=== PATIENT | male | born 1955 | race Caucasian/White ===

== ENCOUNTER 2019-11-28 07:53 | Outpatient (CLI) | payer OTHER, SELFPAY ==
--- NOTE | ~2019-11-28 | XR_ITS ---
EXAMINATION: XR lumbar spine 2-3V EXAM DATE: 11/28/2019 08:14 INDICATION: Low back pain. TECHNIQUE: Lumber spine frontal, lateral, lateral L5-S1 projections for interpretation. Comparison is made to prior examination from 06/12/2012. FINDINGS: There is 4 mm retrolisthesis L3 on L4. Mild diffuse lumbar disc disease, mild upper lumbar , moderate lower lumbar facet arthropathy. Sacrum, sacroiliac joints, sacral arcuate lines are intact . Paraspinal soft tissue is unremarkable. Mild lumbar dextroscoliosis. No endplate erosive change. IMPRESSION: Mild to moderate lumbar spondylosis. Reviewed, dictated and finalized at location B.
== END 2019-11-28 07:54 | disposition home or self-care (01) ==
LOC: ANHIMG 08:02
PROVIDERS: PCP Family Medicine; Visit Provider Family Medicine
DX: M47.896 Other spondylosis, lumbar region (principal)
CPT/HCPCS: 72100

== ENCOUNTER → 2021-01-27 12:05 | Outpatient (CLI) | payer OTHER, SELFPAY ==
--- NOTE | ~2021-01-27 | MR_ITS ---
EXAMINATION: MR brain/brain stem wo/w con EXAM DATE: 01/27/2021 13:12 INDICATION: Multiple sclerosis. TECHNIQUE: Magnetic resonance imaging (MRI) of the brain/brain stem obtained without contrast. Sagit maddie T1, axial diffusion, gradient echo (T2*), T1, T2, FLAIR sequences obtained. Patient was then inj ected with 20 cc intravenous Multihance contrast. Axial and coronal postcontrast T1 weighted sequence s obtained. There is no prior study for comparison. FINDINGS: There are approximately 8-10 white matter T2 hyperintensities, some involving corpus callos um, consistent with quiescent multiple sclerosis. No posterior fossa signal abnormalities. There are no areas of restricted diffusion to suggest acute infarction. There is no acute hemorrhage seen on t he T2*, a hemosiderin sensitive sequence. No intraparenchymal brain mass. The ventricles are normal in size. There are no extra-axial collections. Flow voids are seen in the cerebral arteries on the T2-weighted sequences consistent with their expected patency. The orbits are unremarkable. Soft tis adry is unremarkable. There are no areas of abnormal enhancement on the postcontrast images. IMPRESSION: Scattered white matter lesions consistent with quiescent multiple sclerosis. No evidence of active disease. Reviewed, dictated and finalized at location B. IMPRESSION: Scattered white matter lesions consistent with quiescent multiple s clerosis. No evidence of active disease.
[2021-01-27 12:39] LABS: Estimated Glomerular Filt Rate > 60
== END ==
DX: G35 Multiple sclerosis (principal)
CPT/HCPCS: 70553; A9577

== ENCOUNTER → 2021-01-28 12:26 | Outpatient (CLI) | payer OTHER, SELFPAY ==
--- NOTE | ~2021-01-28 | MR_ITS ---
EXAMINATION: MR cervical spine wo/w con DATE: 01/28/2021 13:21 INDICATION: Multiple sclerosis. TECHNIQUE: Magnetic resonance imaging (MRI) of the cervical spine was performed without and with 20 m L MultiHance intravenous contrast. Sequences included sagittal and axial T2-weighted FSE, sagittal T2 -weighted FS FSE, and sagittal and axial T1-weighted FSE. Postcontrast sequences included sagittal an d axial T1-weighted FS FSE. COMPARISON: None FINDINGS: There is 2 mm retrolisthesis of C5 on C6. There is mild chronic anterior wedging of C5 vert ebral body. There is severely decreased disc height at C5-C6. There is a lesion of increased T2-weigh carlos signal intensity in the spinal cord on the right at C2. There is a lesion of increased T2-weighte d signal intensity in the spinal cord on the right at C6. No abnormal contrast enhancement. The follo wing disc levels are specifically discussed: C2-C3: The disc does not extend beyond the endplate margin. There is mild bilateral uncovertebral celeste nt osteoarthritis. There is mild bilateral facet joint osteoarthritis. There is no neural foraminal s tenosis. There is no central canal stenosis. C3-C4: The disc does not extend beyond the endplate margin. There is mild bilateral uncovertebral celeste nt osteoarthritis. There is mild bilateral facet joint osteoarthritis. There is mild bilateral neural foraminal stenosis. There is no central canal stenosis. C4-C5: The disc does not extend beyond the endplate margin. There is mild bilateral uncovertebral celeste nt osteoarthritis. There is moderate right and mild left facet joint osteoarthritis. There is mild ri ght and moderate left neural foraminal stenosis. There is no central canal stenosis. C5-C6: The disc is bulging. There is severe bilateral uncovertebral joint osteoarthritis. There is mi ld bilateral facet joint osteoarthritis. There is moderate bilateral neural foraminal stenosis. There is mild central canal stenosis. C6-C7: There is a central protrusion. There is no uncovertebral joint osteoarthritis. There is mild b ilateral facet joint osteoarthritis. There is no neural foraminal stenosis. There is no central canal stenosis. C7-T1: The disc does not extend beyond the endplate margin. There is no uncovertebral joint osteoarth ritis. There is mild bilateral facet joint osteoarthritis. There is no neural foraminal stenosis. The re is no central canal stenosis. IMPRESSION: 1. Spinal cord lesions, consistent with multiple sclerosis. 2. Severe spondylosis at C5-C6. Reviewed, dictated and finalized at location A.
== END ==
DX: G35 Multiple sclerosis (principal); G95.9 Disease of spinal cord, unspecified; M47.813 Spondylosis without myelopathy or radiculopathy, cervicothoracic region; M48.03 Spinal stenosis, cervicothoracic region
CPT/HCPCS: 72156; A9577

== ENCOUNTER → 2021-07-13 13:58 | Outpatient (CLI) | payer OTHER, SELFPAY ==
--- NOTE | ~2021-07-13 | MR_ITS ---
EXAMINATION: MR thoracic spine wo/w con DATE: 07/13/2021 15:33 INDICATION: Multiple sclerosis. TECHNIQUE: Magnetic resonance imaging (MRI) of the thoracic spine was performed without and with 20 m L MultiHance intravenous contrast. Sequences included sagittal and axial T2-weighted FSE, sagittal T2 -weighted FS FSE, and sagittal and axial T1-weighted FSE. Postcontrast sequences included sagittal an d axial T1-weighted FS FSE. COMPARISON: Cervical spine MRI 01/28/2021, 01/21/2017 FINDINGS: Bone alignment is normal. There is mild chronic anterior wedging of T11-L1 vertebral bodies . There is mildly decreased disc height from T2-T3 through T7-T8 and at T9-T10 and T10-T11. There is increased T2-weighted signal intensity in the spinal cord on the right posteriorly at T1. No contrast enhancement. At T2-T3, there is a central extrusion with mild central canal stenosis and ventral ind entation of the spinal cord. At T3-T4, there is a central extrusion with mild central canal stenosis. At T4-T5 and T5-T6, there are central extrusions with mild central canal stenosis. At T6-T7, there i s a left central protrusion with mild central canal stenosis. At T7-T8, the disc is bulging with mild central canal stenosis. At T8-T9, there is a right central extrusion with mild central canal stenosi s. At T9-T10, there is a right central extrusion with mild central canal stenosis and ventral indenta tion of the spinal cord. There is multilevel facet joint osteoarthritis, severe in upper thoracic spi ne. On the right, there is mild neural foraminal stenosis at T1-T2, T2-T3, T3-T4, T8-T9, and T10-T11. On the left, there is mild neural foraminal stenosis at T1-T2, T2-T3, and T8-T9. IMPRESSION: 1. Lesion of increased T2-weighted signal intensity in the spinal cord at T1, likely stable from 01/21, consistent with multiple sclerosis. 2. Mild thoracic spondylosis. Reviewed, dictated and finalized at location A. [employer] MONITOR IMPRESSION: 1. Lesion of increased T2-weighted signal intensity in the spinal cord at T1, l ikely stable from 01/21/2017, consistent with multiple sclerosis. 2. Mild thoracic spondylosis.
[2021-07-13 14:52] LABS: Estimated Glomerular Filt Rate > 60
== END ==
DX: G35 Multiple sclerosis (principal); M47.894 Other spondylosis, thoracic region
CPT/HCPCS: 72157; A9577

== ENCOUNTER 2023-06-30 13:45 | Outpatient (RCR) | payer MEDICARE, SELFPAY ==
--- NOTE | 2023-06-20 10:10 | PTOPEVAL1 ---
Assessment and note entered by Monty De La Cruz, PT Evaluation Information Assessment Status Evaluation Diagnosis Jaw pain Onset March 2023 Subjective Information Reports that starting around Thanksgi he had a pop in the jaw and noticed a sharp burning pain in the L side of the jaw. He has tried chewing on the right side. He still feels some pressure and tightness into his ear. He feels he has had some of this in the past. In th past couple of weeks he has noticed some headaches and teeth grinding during the day. Reports that he has a family emergency in [place] and is in a hurry today. Reported Pain Level Pain Score 0: Self Report Assessment PT Clinical Summary Patient demonstrating full functional non painful jaw motion this date. 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 Will follow up as needed to ensure care home success with oral surgeon follow up in July . Plan of Care Interventions Manual Therapy,Neuro Re-education,Therapeutic Activities,Therapeutic Exercise PT Services Indicated Yes Treatment Frequency and 1x/week for 4 visits Duration These treatments will address the objective and functional deficits as defined above. The patient will be advanced safely and appropriately in order for the patient to progress towards his/her prior level of function. Additional exercises will be introduced and as well as a comprehensive home exercise program upon discharge, if needed, ?to ensure carryover of functional gains achieved in the clinic. This treatment plan has been reviewed and agreement upon by the patient.
--- NOTE | 2023-06-20 10:11 | OPREHPOC ---
Outpatient Therapy Plan of Care This is a Multidisciplinary Plan of Care that may contain components documented by all disciplines (PT, OT, and ST.) PT Problem 1 PT Problem #1 Knowledge Deficit PT Goal 1 Goal Patient will demonstrate independent understanding of HEP for muscle energy Target Visit 2 PT Problem 2 PT Problem #2 Pain PT Goal 1 Goal Report pain 0/10 consistently for 2 weeks or more when chewing Target Visit 4 PT Problem 3 PT Problem #3 Impaired Range of Motion PT Goal 1 Goal Demonstrate no loss of TMJ mobility over course of 2 weeks
--- NOTE | 2023-10-13 07:41 | PCPTNOTE ---
Patient did not contact clinic with need for follow up at this time. Patient will be discharged to [facility]. Please refer to last treatment note for discharge status.
== END 2023-09-05 10:36 | disposition home or self-care (01) ==
LOC: ANHPT 13:45
PROVIDERS: PCP Internal Medicine Geriatric Medicine; Visit Provider Internal Medicine Geriatric Medicine
DX: R68.84 Jaw pain (principal)
CPT/HCPCS: 97110; 97140; 97161